=== PATIENT | male | born 1990 | race African-American/Black ===

== ENCOUNTER 2022-04-03 08:09 | Emergency (ER) | payer OTHER ==
[~2022-04-03] VITALS: Ht 182.9 cm; Wt 81.8 kg
[2022-04-03 08:09] VITALS: BP 124/79
[2022-04-03] MEDS ORDERED: BENZ200C70 PO (09:18)
[2022-04-03] MEDS ORDERED: BENZ1LOZ9 PO (09:18)
== END 2022-04-03 09:40 | disposition home or self-care (01) ==
LOC: M ED 08:09
DX: U07.1 COVID-19 (principal)

== ENCOUNTER 2022-11-03 17:12 | Emergency (ER) | payer OTHER ==
[~2022-11-03] VITALS: Ht 182.9 cm; Wt 84.1 kg
[~2022-11-03 17:12] MED LIST: BENZ1LOZ9 PO; BENZ200C70 PO
[2022-11-03 17:13] VITALS: BP 142/81
[2022-11-03 19:35] LABS: GC DNA AMPLIFICATION NEGATIVE (NEGATIVE)
== END 2022-11-03 17:58 | disposition left against medical advice (07) ==
LOC: M ED 17:12
DX: Z53.21 Procedure and treatment not carried out due to patient leaving prior to being seen by health care provider (principal)